=== PATIENT | female | born 1990 | race Caucasian/White ===

== ENCOUNTER 2020-09-09 09:04 | Outpatient (CLI) | payer OTHER | END 2020-09-09 10:56 | disposition home or self-care (01) | LOC: OFIC 805 09:04 | PROVIDERS: ATTEND Otolaryngology Otology & Neurotology | DX: J02.8 Acute pharyngitis due to other specified organisms (principal); J01.80 Other acute sinusitis; H92.02 Otalgia, left ear ==

== ENCOUNTER 2022-08-18 11:40 | Emergency (ER) | payer OTHER ==
[~2022-08-18] VITALS: Ht 152.4 cm; Wt 87.5 kg
[2022-08-18] MEDS ORDERED: SYNTHROID300 MCG PO (12:08)
[2022-08-18] MEDS ORDERED: CYMBALTA60 MG PO (12:09)
== END 2022-08-18 15:56 | disposition home or self-care (01) ==
LOC: ER 11:40
DX: R10.84 Generalized abdominal pain (principal); E03.9 Hypothyroidism, unspecified